=== PATIENT | male | born 1995 | race African-American/Black ===

== ENCOUNTER 2018-11-19 14:42 | Emergency (ER) | payer OTHER ==
--- NOTE | 2018-11-19 15:00 | PDOC ---
Rapid Medical Evaluation Time Seen by Provider: 11/19/18 14:57 Medical Evaluation: Allergies Allergy/AdvReac Type Severity Reaction Status Date / Time No Known Allergies Allergy Verified 12/18/12 15:29 11/19/18 14:58 HPI: complains of too much ETOH ingestion yesterday PE: nauseated and uncomfortable ORDERS: labs fluids Discharge Disposition - Diagnosis Nausea & vomiting - Referrals - Patient Instructions - Post Discharge Activity
[2018-11-19 15:03] VITALS: TEMP 97.8; BMI 31.8
[2018-11-19] MEDS ORDERED: SODIUM CHLORIDE 1,000 ML IV STA ×2 (16:32→18:29)
[2018-11-19] MEDS ORDERED: ONDANSETRON *ODT* 4 MG TABLET SL ONE (16:32)
[2018-11-19] MEDS ORDERED: FAMOTIDINE 20 MG/50 ML IVPB 20 MG/50 ML MG IVPB ONE ×2 (16:58→17:15)
[2018-11-19] MEDS ORDERED: ONDANSETRON *ODT* 4 MG TABLET ONE (17:15)
[2018-11-19 17:30] LABS: BASO % 0.6 % (0-2.0); HEMATOCRIT 50.3 % (35.4-49); HEMOGLOBIN 16.9 GM/dL (11.7-16.9); LYMPH % 7.9 % (8-40); MCH 31.5 pg (25.7-33.7); MCHC 33.6 g/dl (32.0-35.9); MEAN CELL VOLUME 93.8 fl (80-96); MONO % 5.7 % (3.8-10.2); NEUT % 85.8 % (42.8-82.8); PLATELET COUNT 244 K/MM3 (134-434); RBC 5.36 M/mm3 (4.00-5.60); RDW 13.3 % (11.9-15.9); WHITE BLOOD COUNT 19.5 K/mm3 (4.0-10.0)
[2018-11-19 17:55] LABS: ALBUMIN 4.6 g/dl (3.4-5.0); BILIRUBIN,TOTAL 0.9 mg/dL (0.2-1); BLOOD UREA NITROGEN 10.3 mg/dL (7-18); CALCIUM 10.4 mg/dL (8.5-10.1); CREATININE 1.1 mg/dL (0.55-1.3); POTASSIUM 4.2 mmol/L (3.5-5.1); TOT PROT 8.2 g/dl (6.4-8.2)
--- NOTE | 2018-11-19 18:19 | PDOC ---
*Physical Exam - Vital Signs Last Vital Signs Temp Pulse Resp BP Pulse Ox 97.8 F 74 18 120/79 100 11/19/18 14:59 11/19/18 14:59 11/19/18 14:59 11/19/18 14:59 11/19/18 14:59 - Physical Exam Comments: 11/19/18 18:19 The patient was examined by [JOSE R Omalley] under my direct supervision. I personally evaluated the patient. I concur with the above findings and the plan of care. ED Treatment Course - LABORATORY CBC & Chemistry Diagram: 11/19/18 17:17 11/19/18 17:17 - ADDITIONAL ORDERS Additional order review: Laboratory Results 11/19/18 17:17 Sodium 146 H Potassium 4.2 Chloride 105 Carbon Dioxide 31 Anion Gap 10 BUN 10.3 Creatinine 1.1 Est GFR (CKD-EPI)AfAm 109.86 Est GFR (CKD-EPI)NonAf 94.79 Random Glucose 88 Calcium 10.4 H Total Bilirubin 0.9 AST 32 ALT 71 H Alkaline Phosphatase 82 Total Protein 8.2 Albumin 4.6 Lipase 77 11/19/18 17:17 RBC 5.36 MCV 93.8 MCHC 33.6 RDW 13.3 MPV 9.0 Neutrophils % 85.8 H Lymphocytes % 7.9 L D Monocytes % 5.7 Eosinophils % 0.0 D Basophils % 0.6 - Medications Given in the ED: ED Medications Discontinued Medications Generic Name Dose Route Start Last Admin Trade Name Freq PRN Reason Stop Dose Admin Sodium Chloride 1,000 mls @ 1,000 mls/hr 11/19/18 16:32 11/19/18 17:22 Normal Saline - IV 11/19/18 17:31 1,000 mls/hr ASDIR STA Administration Famotidine/Sodium Chloride 20 mg in 50 mls @ 100 mls/hr 11/19/18 16:58 17:23 Pepcid 20 Mg Premixed Ivpb - IVPB 11/19/18 17:27 100 mls/hr ONCE ONE Administration Ondansetron HCl 4 mg 11/19/18 16:32 11/19/18 17:23 Zofran Odt - SL 11/19/18 16:33 4 mg ONCE ONE Administration *DC/Admit/Observation/Transfer Diagnosis at time of Disposition: Nausea & vomiting - Referrals Referrals: ON STAFF,NOT [Primary Care Provider] - - Patient Instructions - Post Discharge Activity
--- NOTE | 2018-11-19 19:38 | PDOC ---
History of Present Illness - General Chief Complaint: Nausea/Vomiting Stated Complaint: VOMITING/DIZZINESS Time Seen by Provider: 11/19/18 14:57 History Source: Patient Exam Limitations: No Limitations Past History - Past Medical History Allergies/Adverse Reactions: Allergies Allergy/AdvReac Type Severity Reaction Status Date / Time No Known Allergies Allergy Verified 11/19/18 15:04 Home Medications: Ambulatory Orders No Home Medications 0 dose .ROUTE UTDICT 12/18/12 Asthma: Yes COPD: No - Immunization History Immunization Up to Date: Yes - Suicide/Smoking/Psychosocial Hx Smoking Status: No Smoking History: Unknown if ever smoked Number of Cigarettes Smoked Daily: 0 *Physical Exam - Vital Signs Last Vital Signs Temp Pulse Resp BP Pulse Ox 97.8 F 74 18 120/79 100 11/19/18 14:59 11/19/18 14:59 11/19/18 14:59 11/19/18 14:59 11/19/18 14:59 - Physical Exam General Appearance: No: Apparent Distress Respiratory/Chest: positive: Lungs Clear, Normal Breath Sounds. negative: Respiratory Distress Cardiovascular: positive: Regular Rhythm, Regular Rate, S1, S2. negative: Murmur Gastrointestinal/Abdominal: positive: Normal Bowel Sounds, Soft. negative: Tender, Distended, Guarding, Rebound Neurologic: positive: Alert, Normal Mood/Affect ED Treatment Course - LABORATORY CBC & Chemistry Diagram: 11/19/18 17:17 11/19/18 17:17 - ADDITIONAL ORDERS Additional order review: Laboratory Results 11/19/18 17:17 Sodium 146 H Potassium 4.2 Chloride 105 Carbon Dioxide 31 Anion Gap 10 BUN 10.3 Creatinine 1.1 Est GFR (CKD-EPI)AfAm 109.86 Est GFR (CKD-EPI)NonAf 94.79 Random Glucose 88 Calcium 10.4 H Total Bilirubin 0.9 AST 32 ALT 71 H Alkaline Phosphatase 82 Total Protein 8.2 Albumin 4.6 Lipase 77 11/19/18 17:17 RBC 5.36 MCV 93.8 MCHC 33.6 RDW 13.3 MPV 9.0 Neutrophils % 85.8 H Lymphocytes % 7.9 L D Monocytes % 5.7 Eosinophils % 0.0 D Basophils % 0.6 - Medications Given in the ED: ED Medications Discontinued Medications Generic Name Dose Route Start Last Admin Trade Name Freq PRN Reason Stop Dose Admin Sodium Chloride 1,000 mls @ 1,000 mls/hr 11/19/18 16:32 11/19/18 17:22 Normal Saline - IV 11/19/18 17:31 1,000 mls/hr ASDIR STA Administration Famotidine/Sodium Chloride 20 mg in 50 mls @ 100 mls/hr 11/19/18 16:58 17:23 Pepcid 20 Mg Premixed Ivpb - IVPB 11/19/18 17:27 100 mls/hr ONCE ONE Administration Ondansetron HCl 4 mg 11/19/18 16:32 11/19/18 17:23 Zofran Odt - SL 11/19/18 16:33 4 mg ONCE ONE Administration Medical Decision Making - Medical Decision Making 23 y/o M with hx of asthma presents with drinking excessive amounts of vodka yesterday (does not recall exact amount) with multiple episodes of emesis today (around 7 episodes, had few with occasional streaks of blood). Also with slight epigastric discomfort. Denies fever, sob, cp, diarrhea, urinary complaints. Does not drink alcohol in large quantities and usually only has alcohol socially. Denies smoking or drug use. Likely alcohol gastritis Labs unremarkable other than leukocytosis (likely reactive from emesis) After 2 L of IVF, Zofran, Pepcid, on reassessment, patient feeling much better Patient passed PO challenge On re-examination, abdomen is soft, nontender Not suspicious for acute abdomen Stable for discharge D/W Dr. Stanley 11/19/18 19:28 *DC/Admit/Observation/Transfer Diagnosis at time of Disposition: Alcoholic gastritis Qualifiers: Chronicity: acute Gastritis bleeding: without bleeding Qualified Code(s): K29.20 - Alcoholic gastritis without bleeding - Discharge Dispostion Disposition: HOME Condition at time of disposition: Stable Decision to Admit order: No - Referrals Referrals: ON STAFF,NOT [Primary Care Provider] - - Patient Instructions Printed Discharge Instructions: DI for Alcoholic Gastritis Additional Instructions: Thank you for choosing [facility]. It was a pleasure taking care of you. Avoid drinking alcohol in large quantities as it can upset your stomach lining. Stay hydrated - drink at least 2-3L of water daily Follow-up with your doctor in 2 days Return to the Emergency Department if your symptoms worsen or persist or have other concerning symptoms. - Post Discharge Activity
[2018-11-19 21:19] VITALS: BP 125/83; PULSE 73
== END 2018-11-19 20:10 | disposition home or self-care (01) ==
LOC: JER 14:42
PROC: 3E033GC Introduction of Other Therapeutic Substance into Peripheral Vein, Percutaneous Approach (ICD-10-PCS; principal; 2018-11-19)
PROC: 3E0337Z Introduction of Electrolytic and Water Balance Substance into Peripheral Vein, Percutaneous Approach (ICD-10-PCS; 2018-11-19)
DX: K29.20 Alcoholic gastritis without bleeding (principal); J45.909 Unspecified asthma, uncomplicated
CPT/HCPCS: 36415; 80053; 83690; 85025; 99283-25; J7030; Q0162

== ENCOUNTER 2024-09-20 11:55 | Emergency (ER) | payer OTHER ==
[2024-09-20 12:19] VITALS: BP 149/94; PULSE 88; RESP 20; TEMP 98.1; BMI 33.7
== END 2024-09-20 12:41 | disposition home or self-care (01) ==
LOC: JERFT 11:55 → JER 11:55 → JERFT 12:41
DX: K04.7 Periapical abscess without sinus (principal)
CPT/HCPCS: 99283-25